=== PATIENT | female | born 1990 | race Hispanic/Latino ===

== ENCOUNTER 2025-03-31 10:15 | Outpatient (CLI) | payer OTHER ==
[2025-03-31 13:31] LABS: BHCG - Serum Negative (NEGATIVE); Pregs Control Background? CLEAR/WHITE (CLR/WHITE); Pregs Control Bar Appear? YES (CONTROL BAR)
== END 2025-03-31 10:16 | disposition home or self-care (01) ==
LOC: CSHLAB 10:15
PROVIDERS: ATTEND Surgery
DX: Z01.812 Encounter for preprocedural laboratory examination (principal); K80.20 Calculus of gallbladder without cholecystitis without obstruction
CPT/HCPCS: 84703

== ENCOUNTER 2025-04-07 06:36 | Day surgery (SDC) | payer OTHER ==
[2025-03-31 11:05] VITALS: BMI 29.2
[2025-04-07] MEDS ORDERED: Bupivacaine HCl 0.5%/Epinephrine 1:200,000/PF 30 ml Vial ONE (08:05)
[2025-04-07] MEDS ORDERED: CEFAZOLIN 2 GM VIAL ONE (08:05)
[2025-04-07] MEDS ORDERED: PROPOFOL 20 ML ONE (09:22)
[2025-04-07] MEDS ORDERED: Rocuronium Bromide 10 MG/ML (10ML VIAL) ONE (09:22)
[2025-04-07] MEDS ORDERED: Lidocaine 1% PF 5 ML VIAL ONE (09:22)
[2025-04-07] MEDS ORDERED: Ondansetron PF 4 MG/2 ML Vial ONE (09:36)
[2025-04-07] MEDS ORDERED: PHENYLEPHRINE-NS 100 MCG/ML 10 ML SYRINGE ONE (09:53)
[2025-04-07] MEDS ORDERED: HYDROcodone/Acetaminophen 5/325 mg Tablet ONE (10:59)
== END 2025-04-07 12:05 | disposition home or self-care (01) ==
LOC: CSHSDC 06:36
PROVIDERS: ATTEND Surgery
PROC: 0FT44ZZ Resection of Gallbladder, Percutaneous Endoscopic Approach (ICD-10-PCS; principal; 2025-04-07)
DX: K80.10 Calculus of gallbladder with chronic cholecystitis without obstruction (principal)
CPT/HCPCS: 88304; C1889; J1100; J2250; J2405; J2704; J3010; S2900